=== PATIENT | female | born 1990 | race Caucasian/White ===

== ENCOUNTER 2016-10-14 00:12 | Emergency (ER) | payer MEDICAID, OTHER ==
[~2016-10-14] VITALS: Ht 160 cm; Wt 85.0 kg
[~2016-10-14 00:12] MED LIST: FERR-43 PO; PREN-88 PO
[2016-10-14] MEDS ORDERED: METOCLOPRAMIDE HCL 10MG/2ML VIAL IM ONE (01:15)
[2016-10-14] MEDS ORDERED: KETOROLAC 60MG/2ML VIAL IM ONE (01:15)
[2016-10-14 01:38] VITALS: BP 124/70
== END 2016-10-14 01:58 | disposition home or self-care (01) ==
LOC: ER 00:12
DX: R51 Headache (principal); R00.2 Palpitations; M54.2 Cervicalgia
CPT/HCPCS: 71010; 93005; 96372; 99284; J1885; J2765; Z7610

== ENCOUNTER 2016-10-29 23:41 | Emergency (ER) | payer OTHER ==
[~2016-10-29] VITALS: Ht 160 cm; Wt 82.0 kg
[2016-10-30 02:58] VITALS: BP 138/82
[2016-10-30] MEDS ORDERED: KETOROLAC 60MG/2ML VIAL IM ONE (04:30)
[2016-10-30] MEDS ORDERED: METOCLOPRAMIDE HCL 5MG TABLET PO ONE (04:30)
== END 2016-10-30 05:39 | disposition home or self-care (01) ==
LOC: ER 10-30 03:53
DX: R51 Headache (principal); M54.2 Cervicalgia; R03.0 Elevated blood-pressure reading, without diagnosis of hypertension
CPT/HCPCS: 81025; 96372; 99283; J1885; J8597

== ENCOUNTER 2017-01-13 16:34 | Emergency (ER) | payer OTHER ==
[~2017-01-13] VITALS: Ht 157.5 cm; Wt 83.0 kg
[2017-01-13] MEDS ORDERED: KETOROLAC 60MG/2ML VIAL IM ONE (21:30)
[2017-01-13] MEDS ORDERED: SODIUM CHLORIDE 0.9% 1,000 ML IV ONE (21:34)
[2017-01-13 21:55] LABS: BASOPHILS % 0.4 % (0.0-2.0); EOSINOPHILS % 0.1 % (0.0-5.0); HEMATOCRIT. 37.9 % (36.0-48.0); HEMOGLOBIN. 12.8 g/dL (12.0-16.0); LYMPHOCYTES % 14.6 % (20.0-50.0); MEAN CORPUSCULAR HEMOGLOBIN 28.4 pg (28.0-32.0); MEAN CORPUSCULAR VOLUME 83.7 fL (81.0-99.0); MEAN PLATELET VOLUME 8.2 fl (7.4-10.4); MONOCYTES % 3.1 % (2.0-8.0); NEUTROPHILS % 81.8 % (40.0-76.0); PLATELET 325 x1000/uL (130-400); RED BLOOD CELL COUNT 4.52 mill/uL (4.2-5.4)
[2017-01-13 22:00] LABS: CHLORIDE 103 mEq/L (98-107)
[2017-01-13 22:09] LABS: CARBON DIOXIDE 25 mEq/L (21-32)
[2017-01-13] MEDS ORDERED: METOCLOPRAMIDE HCL 10MG/2ML VIAL IV ONE (22:30)
[2017-01-13] MEDS ORDERED: ONDANSETRON HCL 4MG/2ML VIAL IV ONE (22:30)
[2017-01-14 00:32] VITALS: BP 124/72
== END 2017-01-14 00:36 | disposition home or self-care (01) ==
LOC: ER 20:31
DX: R51 Headache (principal)
CPT/HCPCS: 36415; 80053; 85025; 96361; 96374; 96375; 99285; J1885; J2405; J2765; J7030; Z7610; 96365; 96366

== ENCOUNTER 2018-09-20 00:26 | Observation (INO) | payer MEDICAID ==
[2018-09-20] MEDS ORDERED: PREN1TAB78 MT (01:49)
== END 2018-09-20 02:00 | disposition home or self-care (01) ==
LOC: 8 EST LDRP 00:26
PROVIDERS: ADMIT Obstetrics & Gynecology; ATTEND Obstetrics & Gynecology
DX: O26.893 Other specified pregnancy related conditions, third trimester (principal); R51 Headache; R10.10 Upper abdominal pain, unspecified; Z3A.34 34 weeks gestation of pregnancy
CPT/HCPCS: 99281; G0378

== ENCOUNTER 2018-10-20 21:34 | Observation (INO) | payer MEDICAID ==
[~2018-10-20] VITALS: Ht 157.5 cm; Wt 85.7 kg
[~2018-10-20 21:34] MED LIST changes: -FERR-43 PO; -PREN-88 PO; +PREN1TAB78 MT
== END 2018-10-20 22:40 | disposition home or self-care (01) ==
LOC: 8 EST LDRP 21:34
PROVIDERS: ADMIT Obstetrics & Gynecology; ATTEND Obstetrics & Gynecology
DX: O62.9 Abnormality of forces of labor, unspecified (principal); O21.2 Late vomiting of pregnancy; Z3A.38 38 weeks gestation of pregnancy
CPT/HCPCS: 99281; G0378

== ENCOUNTER 2018-11-07 08:52 | Observation (INO) | payer MEDICAID ==
[~2018-11-07] VITALS: Ht 157.5 cm; Wt 87.1 kg
[2018-11-07 09:47] LABS: CLARITY URINE CLOUDY (CLEAR); COLOR URINE YELLOW (YELLOW); KETONES URINE NEGATIVE (NEGATIVE); LEUKOCYTE ESTERASE URINE 1+ (NEGATIVE); NITRITE URINE NEGATIVE (NEGATIVE); OCCULT BLOOD URINE NEGATIVE (NEGATIVE); PROTEIN URINE 1+ (NEGATIVE); SPECIFIC GRAVITY URINE 1.022 (1.005-1.030)
[2018-11-07] MEDS: LACTATED RINGERS 1,000 ML IV SCH ×2 (13:24→14:58)
[2018-11-07] MEDS ORDERED: ACETAMINOPHEN 325MG TABLET PO NR (14:30)
[2018-11-07] MEDS ORDERED: ACETAMINOPHEN 500MG TABLET PO PRN (21:30)
[2018-11-08] MEDS: LACTATED RINGERS 1,000 ML IV SCH (00:38)
== END 2018-11-08 07:00 | disposition home or self-care (01) ==
LOC: 8 EST LDRP 08:52
PROVIDERS: ADMIT Obstetrics & Gynecology; ATTEND Obstetrics & Gynecology
DX: O99.89 Other specified diseases and conditions complicating pregnancy, childbirth and the puerperium (principal); M54.9 Dorsalgia, unspecified; Z3A.39 39 weeks gestation of pregnancy
CPT/HCPCS: 76805; 76815; 76818; 81003; 99281; G0378; J7120; 96360; 96361

== ENCOUNTER 2018-11-16 13:02 | Observation (INO) | payer MEDICAID ==
[~2018-11-16] VITALS: Ht 157.5 cm; Wt 95.3 kg
== END 2018-11-16 14:40 | disposition home or self-care (01) ==
LOC: 8 EST LDRP 13:02
PROVIDERS: ADMIT Specialist; ATTEND Specialist
DX: O99.89 Other specified diseases and conditions complicating pregnancy, childbirth and the puerperium (principal); M54.5 Low back pain; Z3A.38 38 weeks gestation of pregnancy
CPT/HCPCS: 99281; G0378; 96360

== ENCOUNTER 2020-01-10 03:17 | Emergency (ER) | payer MEDICAID ==
[~2020-01-10] VITALS: Ht 157.5 cm; Wt 90.0 kg
[2020-01-10] MEDS ORDERED: IBUPROFEN 600MG TABLET PO ONE (03:45)
[2020-01-10 06:12] LABS: CLARITY URINE CLEAR (CLEAR); COLOR URINE YELLOW (YELLOW); KETONES URINE 1+ (NEGATIVE); LEUKOCYTE ESTERASE URINE NEGATIVE (NEGATIVE); NITRITE URINE NEGATIVE (NEGATIVE); OCCULT BLOOD URINE 1+ (NEGATIVE); PH URINE 5.5 (4.5-8.0); PROTEIN URINE TRACE (NEGATIVE); SPECIFIC GRAVITY URINE 1.018 (1.005-1.030); UROBILINOGEN URINE 0.2 E.U./dL (0.2-1.0)
[2020-01-10 09:30] VITALS: BP 120/68
== END 2020-01-10 10:30 | disposition home or self-care (01) ==
LOC: ER 03:17
DX: U07.1 COVID-19 (principal); R43.0 Anosmia; M54.9 Dorsalgia, unspecified
CPT/HCPCS: 81003; 81025; 93005; 99285; C9803; U0003; 87635

== ENCOUNTER 2022-04-11 17:55 | Emergency (ER) | payer MEDICAID ==
[~2022-04-11] VITALS: Ht 160 cm; Wt 83.1 kg
[~2022-04-11 17:55] MED LIST changes: +IBUP-2030 MT; +TRAM50TA3 MT
[2022-04-11 19:02] VITALS: BP 137/54
== END 2022-04-11 22:21 | disposition left against medical advice (07) ==
LOC: ER 18:26
DX: Z53.21 Procedure and treatment not carried out due to patient leaving prior to being seen by health care provider (principal); I49.9 Cardiac arrhythmia, unspecified
CPT/HCPCS: 93005

== ENCOUNTER 2022-09-10 22:57 | Emergency (ER) | payer MEDICAID ==
[~2022-09-10] VITALS: Ht 167.6 cm; Wt 78.0 kg
[2022-09-10 23:00] VITALS: BP 140/95
== END 2022-09-11 01:20 | disposition left against medical advice (07) ==
LOC: ER 22:57
DX: R10.9 Unspecified abdominal pain (principal); Z53.21 Procedure and treatment not carried out due to patient leaving prior to being seen by health care provider

== ENCOUNTER 2023-04-24 15:33 | Emergency (ER) | payer MEDICAID ==
[~2023-04-24] VITALS: Ht 165.1 cm; Wt 100.0 kg
[2023-04-24 15:39] VITALS: BP 141/77; PULSE 99; RESP 18; TEMP 98.6; O2SAT 100
[2023-04-24] MEDS ORDERED: IBUP-2028 MT (17:25)
[2023-04-24] MEDS ORDERED: OFLO5DRO4 RIGHT EAR (17:25)
== END 2023-04-24 18:26 | disposition home or self-care (01) ==
LOC: ER 15:33
DX: H60.91 Unspecified otitis externa, right ear (principal)
CPT/HCPCS: 99283

== ENCOUNTER 2023-11-15 19:35 | Emergency (ER) | payer SELFPAY ==
[~2023-11-15] VITALS: Ht 170.2 cm; Wt 65.0 kg
[~2023-11-15 19:35] MED LIST changes: +AMOX1TAB16 MT; +IBUP-2028 MT; +OFLO5DRO4 RIGHT EAR
[2023-11-15 19:38] VITALS: BP 129/82; PULSE 108; RESP 16; TEMP 98.6; O2SAT 99
[2023-11-15] MEDS ORDERED: TETRACAINE 0.5% OPHTH DROPS 4ML LEFTEYE ONE (20:30)
[2023-11-15] MEDS ORDERED: FLUORESCEIN SODIUM 1MG/STRIP LEFTEYE ONE (20:30)
== END 2023-11-15 21:08 | disposition left against medical advice (07) ==
LOC: ER 19:35
DX: S09.90XA Unspecified injury of head, initial encounter (principal); Z79.899 Other long term (current) drug therapy; X58.XXXA Exposure to other specified factors, initial encounter; Y93.89 Activity, other specified; Y92.89 Other specified places as the place of occurrence of the external cause; Y99.8 Other external cause status
CPT/HCPCS: 99283

== ENCOUNTER 2023-11-28 20:54 | Emergency (ER) | payer SELFPAY ==
[~2023-11-28] VITALS: Ht 157.5 cm; Wt 83.0 kg
[2023-11-28 21:01] VITALS: O2SAT 100
[2023-11-28] MEDS: TETANUS, DIPHTHERIA, PERTUSSIS VAC/PF 0.5ML (>10YR OLD) IM ONE (22:43)
[2023-11-28] MEDS: IBUPROFEN 600MG TABLET PO ONE (22:44)
[2023-11-28] MEDS: BACITRACIN ZINC OINT UDPKT TOP ONE (22:44)
[2023-11-28] MEDS: LIDOCAINE HCL/PF 1% 10 MG/ML 5ML VIAL INFIL ONE (22:48)
[2023-11-28] MEDS ORDERED: BO1 TP (23:08)
[2023-11-28] MEDS ORDERED: IBUP-2028 MT (23:08)
[2023-11-28 23:22] VITALS: BP 110/60; PULSE 66; RESP 15; TEMP 98.1
== END 2023-11-28 23:26 | disposition home or self-care (01) ==
LOC: ER 20:54
DX: S81.811A Laceration without foreign body, right lower leg, initial encounter (principal); X58.XXXA Exposure to other specified factors, initial encounter; Y93.89 Activity, other specified; Y92.89 Other specified places as the place of occurrence of the external cause; Y99.8 Other external cause status
CPT/HCPCS: 99283; 81025; 90715; 12002; 90471; J3490